=== PATIENT | female | born 2000 | race Caucasian/White ===

== ENCOUNTER 2024-02-27 11:15 | Outpatient (CLI) | payer BC, SELFPAY ==
[2024-02-27 12:24] LABS: Beta HCG Quantitative < 2.39 mIU/ML
== END 2024-02-27 11:16 | disposition home or self-care (01) ==
LOC: ANHLAB 11:18
PROVIDERS: Visit Provider Student in an Organized Health Care Education/Training Program
DX: N94.89 Other specified conditions associated with female genital organs and menstrual cycle (principal)
CPT/HCPCS: 36415; 84702